=== PATIENT | female | born 1975 | race Caucasian/White ===

== ENCOUNTER 2023-12-02 11:56 | Outpatient (CLI) | payer BC | END 2023-12-02 11:57 | disposition home or self-care (01) | LOC: BICRAD 11:56 | PROVIDERS: ATTEND Nurse Practitioner Family | DX: M25.531 Pain in right wrist (principal); M18.11 Unilateral primary osteoarthritis of first carpometacarpal joint, right hand; M25.841 Other specified joint disorders, right hand ==